=== PATIENT | male | born 1945 | race Caucasian/White ===

== ENCOUNTER 2017-07-21 14:09 | Emergency (ER) | payer MEDICARE, MEDICAID ==
--- NOTE | 2017-07-21 14:44 | ED Physician Chart ---
ED Chief Complaint/HPI - Patient Information Date Seen:: 07/21/17 Time Seen:: 14:43 Chief Complaint:: BLURRY VISION 2 days History of Present Illness:: This 71-year-old male presents with onset of blurry vision in both eyes and weakness and loss of sensation in his left hand when he awoke from sleep. The day before this happened the patient had onset of severe pain around and behind his right eye. The pain is no longer present. The patient has a history of stent placement in his heart on 2 prior occasions. The patient has no difficulty with speech, ambulation or proximal strength in the left upper extremity. The patient has coronary artery disease, diabetes and hypertension. His cholesterol is normal. Vitals:: Vital Signs - 8 hr 07/21/17 14:25 Temp 97.4 F HR 89 RR 14 BP 149/85 O2 Sat % 99 ED Review of Systems - Review of Systems General/Constitutional: No fever, No chills, Weakness, No diaphoresis, No edema , Other (the patient has a history of a 16 pound weight loss over the past several months which is unexplained.) Skin: No skin lesions, No rash, No bruising Head: Headache (see HPI for description of headache.), No light-headedness Eyes: Acuity change, No pain, No diplopia, Other (the patient is having difficulty with his vision which she has difficulty verbalizing.) ENT: No earache, No sore throat, No tinnitus Neck: No neck pain, No swelling, No thyromegaly, No mass noted Cardio Vascular: No chest pain Pulmonary: No SOB, No cough, No wheezing GI: No nausea, No vomiting, No diarrhea, No pain, No hematemesis G/U: No dysuria, No hematuria Musculoskeletal: No bone or joint pain, No back pain, No muscle pain Psychiatric: No prior psych history, No depression, No anxiety Hematopoietic: No bruising, No lymphadenopathy Allergic/Immuno: No urticaria, No angioedema Neurological: No syncope, No seizure ED Past Medical History - Past Medical History Past Medical History: DM, CAD, Dyslipidemia Family History: Heart disease Social History: Smoker, No Drug Use ( Vocational use of alcohol. Has had 2 coronary arteries stented.), , Other ( Lives with family. Quit smoking yesterday.) Psychiatricy History: None Family Medical History - Family Member Mother Ethnicity: Hx Family Cancer: No Hx Family Coronary Artery Disease: No Hx Family Stroke: No Hx Family Diabetes: No Hx Family Dementia: No Hx Family HIV: No ED Physical Exam - Physical Examination General/Constitutional: Awake, Well-developed, well-nourished, Alert, No distress, GCS 15, Non-toxic appearing, Ambulatory Head: Atraumatic Other Head comments:: No visible or palpable evidence of recent head trauma. Eyes: Lids, conjuctiva normal, PERRL, EOMI Other Eyes comments:: No nystagmus. Skin: Nl inspection, No rash, No skin lesions, No ecchymosis, Well hydrated, No lymphadenopathy ENMT: External ears, nose nl, Lips, teeth, gums nl, Oropharynx nl, Tonsils nl Neck: Nontender, Full ROM w/o pain, No JVD, No nuchal rigidity, No bruit, No mass, No stridor Respiratory: Nl effort/Exclusion, Clear to Auscultation, No Wheeze/Rhonchi/Rales Cardio Vascular: RRR, No murmur, gallop, rubs, NL S1 S2, Carotid/Femoral/Distal pulses equal bilaterally GI: No tenderness/rebounding/guarding, No organomegaly, No hernia, Normal BS's, Nondistended ( Rectal examination deferred at my discretion.) : No CVA tenderness, No discharge Extremities: No tenderness or effusion, Full ROM, No edema, Normal digits & nails ( Patients left hand was cool compared to the right hand. Patient had good pulses in all four extremities and normal capillary refill in both the right and left hand. The patient had prominent weakness in the left hand and wrist and decreased sensation to light touch. He had no pronator drift. Finger knows testing was slightly impaired in the left upper extremity. The patient's gait was steady and the Romberg test was negative.) ED Labs/Radiology/EKG Results - Lab Results Results: Laboratory Tests 07/21/17 07/21/17 07/21/17 16:23 16:34 16:34 WBC 9.6 RBC 4.97 Hgb 15.6 Hct 47.6 MCV 95.9 MCH 31.5 H MCHC Differential 32.8 RDW 12.6 Plt Count 253 MPV 9.4 Neutrophils % 58.0 Lymphocytes % 31.0 Monocytes % 7.8 Eosinophils % 2.6 Basophils % 0.6 Sodium 133 L Potassium 4.1 Chloride 99 Carbon Dioxide 24.9 Anion Gap 13.2 BUN 26 H Creatinine 1.2 Est GFR ( Amer) > 60.0 Est GFR (Non-Af Amer) > 60.0 BUN/Creatinine Ratio 21.7 Glucose 244 H Hemoglobin A1c % 10.6 H Calcium 9.8 Total Bilirubin 0.5 AST 13 ALT 16 Alkaline Phosphatase 69 Total Protein 8.1 Albumin 4.6 Globulin 3.5 Albumin/Globulin Ratio 1.3 Urine Source Urine Color Urine Clarity Urine pH Ur Specific Hunt Urine Protein Urine Glucose (UA) Urine Ketones Urine Blood Urine Nitrate Urine Bilirubin Urine Urobilinogen Ur Leukocyte Esterase Urine RBC Urine WBC Ur Epithelial Cells Urine Bacteria 07/21/17 16:40 WBC RBC Hgb Hct MCV MCH MCHC Differential RDW Plt Count MPV Neutrophils % Lymphocytes % Monocytes % Eosinophils % Basophils % Sodium Potassium Chloride Carbon Dioxide Anion Gap BUN Creatinine Est GFR ( Amer) Est GFR (Non-Af Amer) BUN/Creatinine Ratio Glucose Hemoglobin A1c % Calcium Total Bilirubin AST ALT Alkaline Phosphatase Total Protein Albumin Globulin Albumin/Globulin Ratio Urine Source RANDOM Urine Color YELLOW Urine Clarity CLEAR Urine pH 5.5 Ur Specific Hunt 1.025 Urine Protein TRACE Urine Glucose (UA) >=1000 H Urine Ketones NEGATIVE Urine Blood NEGATIVE Urine Nitrate NEGATIVE Urine Bilirubin NEGATIVE Urine Urobilinogen 0.2 Ur Leukocyte Esterase NEGATIVE Urine RBC NONE SEEN Urine WBC NONE SEEN Ur Epithelial Cells NONE SEEN Urine Bacteria NONE SEEN LABORATORY INTERPRETATION: the CBC was unremarkable with no leukocytosis, anemia or platelet disorder. Metabolic studies showed a mild hyponatremia of 133. The other electrolytes were all within normal parameters. The patient had mild elevation of her renal function studies. The patient had a moderate elevation of a serum glucose in the 200 range. Liver function studies were all within normal parameters. CT scan of the head without contrast showed an acute right parietal occipital infarction measuring 3 x 6 cm. There was no evidence of bleeding or cerebral edema. - EKG Interpretations EKG Time:: 16:23 Rate & Rhythm: NORMAL SINUS AT A RATE OF 77 WITHOUT ECTOPY. [place]: NORMAL Intervals: NORMAL NE interval. Normal QRS duration. Normal QT interval. Comments:: Patient has a prominent queue waived in ADF diagnostic of an old inferior infarct. Patient also has poor R way progression in leads V1 through V3, ion. Suggestive of old anterior infarct. ion. Patient had nonspecific flattening of T waves. Impression: ion: abnormal showing evidence for old inferior and anterior infarction. EKG ED Assessment - Assessment General Assessment: CASE SUMMARY: the 71-year-old male presents with a two day history of blurry vision in both eyes and weakness in his left hand. He woke with these yesterday. Prior to the onset of the blurry vision and weakness the patient had severe pain in the region of the right eye and behind the right eye. The patient has a prior history of coronary artery disease, diabetes and hyperlipidemia. He also has a strong family history of CAD. On physical examination there was definite weakness in the left hand as well as decreased sensory to light touch. CT scan of the head was positive for a 3 x 6 cm infarct in the right parietal-occipital region. The case was initially discussed with the patient's primary physician, Dr. Shankar Zelaya. He requested that the patient be transferred to our [facility] in [place] where he could get neurologic consultation. [facility] refused to accept the patient and arrangements were made with Dr. YOUNG to accept the patient at [facility], a stroke center. the patient received 162 mg of aspirin. Patient was transferred by BLS level ambulance to [facility]. MDM DDX for WEAKNESS IN THE LEFT HAND: NOT Peripheral nephropathy based on alternate diagnosis of acute CVA based on CT scan of the head. NOT Hypoglycemia based on a serum glucose in the 200 range. NOT Hemorrhagic CVA based on the CT scan. NOT post ictal weakness based on CT Scan confirmed CVA. NOTE TO CODERS: This case does not meet the criteria for critical care. ED Septic Shock - . Is Septic Shock (SBP<90, OR Lactate>4 mmol\L) present?: No - <6hrs of presentation: Vital Signs: Vital Signs - 8 hr 07/21/17 14:25 Temp 97.4 F HR 89 RR 14 BP 149/85 O2 Sat % 99 ED Reassessment (Disposition) - Reassessment Reassessment Condition:: Unchanged - Diagnosis Diagnosis:: ACUTE RIGHT PARIETO-OCCDCIPITAL INFARCT 3,6 CM ED Discharge Plan - Patient Disposition Admit/Discharge/Transfer: TRANSFER TO ACUTE HOSP Condition at Disposition: Stable
[2017-07-21 16:42] LABS: % BASOPHILS 0.6 % (0.0-2.0); % EOSINOPHILS 2.6 % (0.0-5.0); % MONOCYTES 7.8 % (2.0-10.0); BASOPHILE ABSOLUTE 0.1 Th/cumm (0-0.2); EOSINOPHILE ABSOLUTE 0.2 Th/cmm (0.1-0.4); HEMATOCRIT 47.6 % (41.0-60); HEMOGLOBIN 15.6 gm/dL (12-16); MEAN CELL VOLUME 95.9 fl (80-99); MEAN CORPUSCULAR HEMOGLOBIN 31.5 pg (27.0-31.0); MEAN CORPUSCULAR HGB CONC 32.8 pg (28.0-36.0); MEAN PLATELET VOLUME 9.4 fl; MONOCYTE ABSOLUTE 0.7 Th/cmm (0.3-1.0); NEUTROPHILE ABSOLUTE 5.6 Th/cmm (1.8-8.0); PLATELET COUNT 253 Th/cmm (150-400); RED BLOOD COUNT 4.97 Mil/cmm (3.80-5.80); RED CELL DISTRIBUTION WIDTH 12.6 % (11.5-20.0); WHITE BLOOD COUNT 9.6 Th/cmm (4.8-10.8)
[2017-07-21 17:03] LABS: ALB/GLOB RATIO 1.3 (1.0-1.8); ALBUMIN 4.6 gm/dL (4.2-5.5); ALKALINE PHOSPHATASE 69 U/L (34-104); ANION GAP 13.2 (7.0-16.0); BILIRUBIN,TOTAL 0.5 mg/dL (0.3-1.0); BUN - UREA NITROGEN 26 mg/dL (7-25); CALCIUM SERUM 9.8 mg/dL (8.6-10.3); CARBON DIOXIDE 24.9 mEq/L (21.0-31.0); CHLORIDE 99 mEq/L (98-107); CREATININE - SERUM 1.2 mg/dL (0.7-1.3); GFR AFRICAN-AMERICAN > 60.0 ml/min (>90); GFR NON AFRICAN-AMERICAN > 60.0 ml/min; GLUCOSE 244 mg/dL (70-105); POTASSIUM SERUM 4.1 mEq/L (3.5-5.1); SGOT 13 U/L (13-39); SGPT/ALT 16 U/L (7-52); SODIUM SERUM 133 mEq/L (136-145); TOTAL PROTEIN,SERUM 8.1 gm/dL (6.0-8.3)
[2017-07-21 18:15] LABS: URINE MICROSCOPIC INDICATED? YES; URINE SOURCE RANDOM
[2017-07-21 18:17] LABS: URINE BILIRUBIN NEGATIVE (NEGATIVE); URINE BLOOD NEGATIVE (NEGATIVE); URINE GLUCOSE (UA) >=1000 mg/dL (NEGATIVE); URINE KETONE NEGATIVE (NEGATIVE); URINE LEUKOCYTE ESTERASE NEGATIVE (NEGATIVE); URINE NITRATE NEGATIVE (NEGATIVE); URINE PH 5.5 (4.6 - 8.0); URINE PROTEIN TRACE mg/dL (NEGATIVE); URINE UROBILINOGEN 0.2 E.U./dL (0.2 - 1.0)
[2017-07-21 18:33] LABS: URINE CLARITY CLEAR (CLEAR); URINE COLOR YELLOW
[2017-07-21 18:34] LABS: URINE BACTERIA NONE SEEN /hpf (NONE SEEN); URINE EPITHELIAL CELLS NONE SEEN /lpf (FEW); URINE RBC NONE SEEN /hpf (0-5); URINE WBC NONE SEEN /hpf (0-5)
[2017-07-21] MEDS ORDERED: Aspirin 81mg Chewable Tab PO ONE (18:58)
[2017-07-21] MEDS ORDERED: Atorvastatin Calcium 10 MG TAB PO SCH (19:00)
[2017-07-21] MEDS ORDERED: Aspirin 81mg Chewable Tab ONE (19:05)
--- NOTE | 2017-07-22 08:49 | Diagnostic Imaging Report ---
Exam: CT examination of brain HISTORY: Focal neurological deficits left hand Total DLP equals 582 CTDI equals 36.1 Findings: Multiple contiguous thin section of brain obtained from the base of skull to the vertex without the administration of contrast material. No prior studies available for comparison. The study demonstrates prominence of cerebral sulci and ventricles consistent with atrophy. Ischemic white matter changes are noted. There is evidence for 3.5 cm low density area in the right posterior parieto-occipital lobe suggestive of infarct. Clinical correlation recommended. There is no evidence for midline shift. There is no evidence for hemorrhage. The bony calvarium is intact. There is evidence of for normal aeration of paranasal sinuses. IMPRESSION: Right parieto-occipital infarct clinical correlation recommended.
[2017-07-22 10:45] LABS: A1C % 10.6 % (4.0-6.0)
== END 2017-07-21 20:10 | disposition short-term general hospital (02) ==
LOC: ER 14:09
DX: I63.9 Cerebral infarction, unspecified (principal); E11.9 Type 2 diabetes mellitus without complications; I25.10 Atherosclerotic heart disease of native coronary artery without angina pectoris; E78.5 Hyperlipidemia, unspecified; F17.200 Nicotine dependence, unspecified, uncomplicated; G31.89 Other specified degenerative diseases of nervous system; I63.411 Cerebral infarction due to embolism of right middle cerebral artery
CPT/HCPCS: 36415-UA; 70450-TC; 80053-TC; 81001-TC; 82948-90; 83036-90; 85025-TC; 93005; Z7610